=== PATIENT | male | born 1970 | race Caucasian/White ===

== ENCOUNTER → 2017-11-30 08:00 | Emergency (ER) | payer OTHER ==
[2017-11-30] MEDS: TETRACAINE 0.5% 4 ML OPH LEFT EYE (07:30)
[2017-11-30] MEDS: FLUORESCEIN STRIP LEFT EYE (07:42)
== END | disposition home or self-care (01) ==
DX: H57.12 Ocular pain, left eye (principal); Z87.891 Personal history of nicotine dependence
CPT/HCPCS: 99283; Z7502